=== PATIENT | male | born 1995 | race Hispanic/Latino ===

== ENCOUNTER 2018-09-12 03:54 | Emergency (ER) | payer OTHER ==
[2018-09-12 04:13] LABS: BASO # 0.1 10^3/uL (0.0-0.2); BASO % 0.8 % (0.0-1.0); EOS # 0.1 10^3/uL (0.0-0.50); EOS % 1.3 % (0.0-3.0); HEMATOCRIT 48.7 % (42.0-52.0); HEMOGLOBIN 17.6 g/dl (13.5-17.5); LYMPH # 2.4 10^3/uL (1.5-6.5); MEAN CORPUSCULAR HEMOGLOBIN 31.4 pg (27.0-33.0); MEAN CORPUSCULAR HGB CONC 36.1 g/dl (32.0-36.5); MEAN CORPUSCULAR VOLUME 86.8 fl (80.0-96.0); MONO # 0.4 10^3/uL (0.0-0.8); MONO % 6.2 % (0.0-5.0); NEUTROPHILS # 3.1 10^3/uL (1.8-7.7); NEUTROPHILS % 51.2 % (36.0-66.0); PLATELET COUNT, AUTOMATED 283 10^3/uL (150-450); RED BLOOD COUNT 5.61 10^6/uL (4.30-6.10)
[2018-09-12] MEDS ORDERED: NS 1,000 ML IV ONE (04:15)
[2018-09-12 04:16] LABS: ABG BASE EXCESS -5.2 (-2.0-2.0); ABG HCO3 19.1 MEQ/L (22.0-26.0); ABG O2 SATURATION 98.5 % (95.0-99.0); ABG PARTIAL PRESSURE CO2 34.7 mmHg (35.0-45.0); ABG PARTIAL PRESSURE O2 139.2 mmHg (75.0-100.0); ABG STANDARD HCO3 20.3 MEQ/L (22.0-26.0); ABG TOTAL CO2 20.2 MEQ/L (22.0-29.0); ABG pH (ARTERIAL) 7.359 UNITS (7.350-7.450)
[2018-09-12 04:43] LABS: AMPHETAMINES LEVEL URINE NEGATIVE (NEGATIVE); BARBITURATES URINE NEGATIVE (NEGATIVE); BENZODIAZEPINES URINE NEGATIVE (NEGATIVE); CANNABINOIDS URINE NEGATIVE (NEGATIVE); COCAINE METABOLITE URINE NEGATIVE (NEGATIVE); METHADONE URINE NEGATIVE (NEGATIVE); OPIATES URINE NEGATIVE (NEGATIVE); PHENCYCLIDINE URINE NEGATIVE (NEGATIVE)
[2018-09-12 04:49] LABS: ACETAMINOPHEN LEVEL < 2.0 UG/ML (10.0-30.0); ALBUMIN 4.5 GM/DL (3.2-5.2); ALT/SGPT 59 U/L (12-78); BILIRUBIN,DIRECT 0.1 MG/DL (0.0-0.2); BILIRUBIN,TOTAL 0.4 MG/DL (0.2-1.0); BLOOD UREA NITROGEN 10 MG/DL (7-18); CALCIUM LEVEL 8.3 MG/DL (8.5-10.1); CARBON DIOXIDE LEVEL 25 MEQ/L (21-32); CHLORIDE LEVEL 105 MEQ/L (98-107); CREATININE FOR GFR 1.08 MG/DL (0.70-1.30); ETHYL ALCOHOL (ETHANOL) 0.227 % (0.000-0.010); GLOMERULAR FILTRATION RATE > 60.0 (>60); GLUCOSE, FASTING 104 MG/DL (70-100); POTASSIUM SERUM 4.3 MEQ/L (3.5-5.1); SALICYLATE LEVEL < 1.7 MG/DL (5.0-30.0); SODIUM LEVEL 140 MEQ/L (136-145); TOTAL PROTEIN 7.6 GM/DL (6.4-8.2)
--- NOTE | 2018-09-12 04:51 | REP ---
Clinical: Altered mental status . Comparison: None . Findings: The mediastinum and cardiac silhouette are stable and within normal limits for portable technique. The lung lopez are clear without acute consolidation, effusion, or pneumothorax. Skeletal structures are intact. Impression: No acute cardiopulmonary process appreciated. Electronically Signed by Imer Walton MD 09/12/2018 04:43 A
--- NOTE | 2018-09-12 05:04 | REPVR ---
EXAM: CT Head Without Contrast EXAM DATE/TIME: 09/12/2018 4:03 AM CLINICAL HISTORY: 23 years old, male; Injury or trauma; Injury history: Found outside; Additional info: Altered mental status TECHNIQUE: Axial computed tomography images of the head/brain without contrast. All CT scans at this facility use at least one of these dose optimization techniques: automated exposure control; mA and/or kV adjustment per patient size (includes targeted exams where dose is matched to clinical indication); or iterative reconstruction. COMPARISON: No relevant prior studies available. FINDINGS: Brain: The cortical/white matter interfaces are preserved throughout the brain. There is no evidence of intracranial hemorrhage. No parenchymal mass lesions are identified. Ventricles: The ventricular system is normal in size and configuration. Bones/joints: No acute fractures of the skull are identified. Sinuses: The visualized paranasal sinuses are clear. Mastoid air cells: The visualized mastoid air cells are clear. Soft tissues: Unremarkable. IMPRESSION: Normal appearance of the brain. No evidence of acute intracranial injury. Electronically signed by: Gloria Condon On 09/12/2018 05:03:43 AM
[2018-09-12 06:05] VITALS: BP 127/61
--- NOTE | 2018-09-12 08:48 | ECGEPIP ---
Stationary ECG Study [facility] - ED Test Date: 2018-09-12 Pat Name: CHRISTOFER DOMINIQUE Department: Room: - Gender: M [employer]: [facility] : 1995 Requested By: JUAN MANUEL Xiao Order Number: [id number] Reading MD: Madalyn Mayberry Measurements Intervals [place] Rate: 79 P: 36 AL: 144 QRS: 3 QRSD: 98 T: 5 QT: 365 QTc: 419 Interpretive Statements SINUS RHYTHM NO PRIOR FOR COMPARISON Electronically Signed On 09-12-2018 8:47:59 EST by Madalyn Mayberry
== END 2018-09-12 06:10 | disposition home or self-care (01) ==
LOC: M ED 03:54
DX: F10.229 Alcohol dependence with intoxication, unspecified (principal); Y90.1 Blood alcohol level of 20-39 mg/100 ml; X31.XXXA Exposure to excessive natural cold, initial encounter; Y92.89 Other specified places as the place of occurrence of the external cause
CPT/HCPCS: 36415; 36600; 70450; 71045; 80048; 80076; 80307; 82803; 84443; 85025; 93005; 93041; 99285; G0480

== ENCOUNTER → 2019-01-08 | Outpatient (CLI) | payer OTHER ==
--- NOTE | 2019-01-08 09:29 | REP ---
MRI RIGHT KNEE WITHOUT CONTRAST: HISTORY: Right knee pain. No comparison radiographs. No known injury. Symptoms fail to improve with physical therapy. TECHNIQUE: Axial, coronal and sagittal imaging planes were utilized. T1, proton density and T2-weighted scans were included with and without fat saturation. MRI FINDINGS: Cortical and medullary bone signal intensity are normal. No significant joint effusion is seen. There is no evidence of Jordan's cyst. Medial and lateral patellar retinacular structures are intact. Quadriceps and patellar tendons appear intact. Edema along the anterior margin of the patellar tendon and the inferior pole of the patella. Question mild peritonitis. Anterior and posterior cruciate ligaments have an intact appearance. There is no evidence of medial or lateral collateral ligament disruption. There is a principally horizontal tear in the midbody of the lateral meniscus at its periphery extending into the anterior horn. There is a para-meniscal cyst associated with this at mid body level of the lateral meniscus. The para meniscal cyst measures 7 mm in craniocaudal span x 3 mm in medial to lateral dimension x 6 mm anteroposterior. There is subtle irregularity of the inner free margin of the lateral meniscus in the posterior horn as well. Medial meniscus is unremarkable. No articular cartilaginous lesion is appreciated. Exam is otherwise unremarkable. IMPRESSION: Nondisplaced lateral meniscal tear with a small para-meniscal cyst. Minimal edema along the anterior margin of the proximal patellar tendon. No other abnormality. Electronically Signed by Demarco Hill MD 01/08/2019 03:54 P
== END ==
LOC: M RAD 07:03
PROVIDERS: ATTEND Physician Assistant Medical
DX: M23.061 Cystic meniscus, other lateral meniscus, right knee (principal)